=== PATIENT | female | born 1975 | race Caucasian/White ===

== ENCOUNTER → 2018-10-13 15:54 | Outpatient (CLI) | payer MEDICAID, SELFPAY ==
[2018-10-13 17:14] LABS: Thyroid Stimulating Hormone 0.88 uIU/ml (0.358-3.740)
[2018-10-15 10:18] LABS: Testosterone,Total 8 ng/dL (8-48)
[2018-10-17 10:07] LABS: Estradiol 57.6 pg/mL (.)
[2018-10-17 10:15] LABS: Estrogen 131 pg/mL (.)
== END ==
PROVIDERS: Visit Provider Nurse Practitioner Psychiatric/Mental Health
DX: R53.83 Other fatigue (principal)
CPT/HCPCS: 36415; 82670; 82672; 84403; 84443